=== PATIENT | male | born 1995 | race Caucasian/White ===

== ENCOUNTER 2022-06-06 16:00 | Emergency (ER) | payer OTHER, SELFPAY ==
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
[2022-06-06 16:24] VITALS: BP 152/82; PULSE 84; O2SAT 100
[2022-06-06 16:25] VITALS: BP 166/75; PULSE 90; RESP 18; TEMP 37.7; O2SAT 100; BMI 29.3
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
[2022-06-06] MEDS: Cyclobenzaprine HCl 10 MG TABLET PO (16:49)
[2022-06-06 17:49] LABS: COVID-19 Test Negative (Negative)
[2022-06-06 17:53] VITALS: BP 150/86; PULSE 92; RESP 18; TEMP 36.8; O2SAT 100
[2022-06-06 18:00] VITALS: BP 150/86; PULSE 92; RESP 18; TEMP 36.8; O2SAT 100
== END 2022-06-06 18:08 | disposition short-term general hospital (02) ==
PROVIDERS: Nurse Practitioner Family; Emergency Provider Internal Medicine
DX: S32.049A Unspecified fracture of fourth lumbar vertebra, initial encounter for closed fracture (principal); M54.50 Low back pain, unspecified; V29.40XA Motorcycle driver injured in collision with unspecified motor vehicles in traffic accident, initial encounter; Y93.9 Activity, unspecified; Y92.410 Unspecified street and highway as the place of occurrence of the external cause; Y99.9 Unspecified external cause status; F17.200 Nicotine dependence, unspecified, uncomplicated; Z20.822 Contact with and (suspected) exposure to COVID-19; Z71.6 Tobacco abuse counseling
CPT/HCPCS: 72100; 87635; 99285

== ENCOUNTER 2023-02-09 11:30 | Outpatient (RCR) | payer OTHER, SELFPAY ==
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
[2023-01-21 11:51] VITALS: BMI 27.4
[2023-01-21 12:11] VITALS: BP 110/70; PULSE 68; TEMP 37.1
[2023-01-21 12:46] LABS: Amphetamine Screen Urine Not Detected (Not Detect); Barbiturates, Urine Not Detected (Not Detect); Benzodiazepines Screen Urine Not Detected (Not Detect); Cannabinoid Screen Urine Not Detected (Not Detect); Cocaine Screen Urine Not Detected (Not Detect); Fentanyl, urine POSITIVE (Not Detect); Opiate Screen Urine Not Detected (Not Detect); Phencyclidine Screen Urine Not Detected (Not Detect)
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
--- NOTE | 2023-01-24 13:23 | PC.NURSE ---
Patient's toxicology screen positive for Fentanyl. I asked Erik about this and he stated he does not use Fentanyl and is not on any pain medications/opiates or heroin. Patient wants another DILL. Yaquelin JUAREZ is aware.
--- NOTE | 2023-01-27 15:56 | HO.PHP ---
Clients case was reviewed and opened today in treatment team.
--- NOTE | 2023-01-28 12:19 | P.PNPSP_ITS ---
Subjective Subjective Date of Service: 01/28/23 Reason For Visit: anxiety,depression Medical Problems Affecting Mental Status: No Interim History: Describes mood as ?good?. Less depressed. Continues to abstain from alcohol, 2 weeks in 2 days sober. Active in alcoholics anonymous, going to meetings daily, has a sponsor. Stopped taking nicotine patches, using Nicorette gum, continues to smoke 1-2 cigarettes daily. Reports good sleep. Finding program helpful. No hallucinations, no paranoia reported. No SI, no safety concerns. Medication Compliance: Yes Side effects from medications: No Attending Groups: Yes Review of Systems Acute medical concerns: No Medical Review of Systems: unchanged Review of Systems Review of Systems Yes all other systems are reviewed and are negative Constitutional: Reports no additional constitutional complaints Mental Status Exam Mental Status Exam Narrative: NAD Patient Appearance: Well Grooomed Patient Orientation: Person, Place, Time and Situation Level of Consciousness: Appropriate Patient Behavior: Appropriate, Cooperative and Good Eye Contact Mood Description: Appropriate Affect Description: Depressed (improving) and Anxious (improving) Patient Cognition Impaired: No Ability to Follow Directions: Excellent Speech Pattern: Clear Memory Description: Intact Hallucinations: None Delusions: Not Present Thought Process: Intact Thought Content: positive for Intact Depressive Symptoms: Increased Anxiety, Loss of Int. in Activity and Increased Fatigue Judgement: Fair Diagnostics Vital Signs (24Hr): BMI result Body Mass Index 27.4 Assessment & Plan Assessment & Plan (1) Major depressive disorder, recurrent, severe with psychotic features: Status: Acute Code(s): F33.3 - Major depressive disorder, recurrent, severe with psychotic symptoms Assessment and Plan: Improved mood, less depressed, less anxious. Satisfied with current medications, says they are working to help manage sx. No SI, no safety concerns. Just received refills of meds from [place] earlier this week. Finding PHP groups helpful. (2) Alcohol use disorder, moderate, dependence: Status: Acute Code(s): F10.20 - Alcohol dependence, uncomplicated Assessment and Plan: Continues to remain abstinent from alcohol use, currently sober for 2 weeks and 2 days today. Attending AA daily, has a sponsor, beginning to work the steps. Getting more active, making sober friends. No cravings currently. Finding Substance use groups here helpful. (3) Cannabis use disorder, moderate, dependence: Status: Acute Code(s): F12.20 - Cannabis dependence, uncomplicated Assessment and Plan: Continues to abstain, no concerns. (4) PTSD (post-traumatic stress disorder): Status: Acute Code(s): F43.10 - Post-traumatic stress disorder, unspecified Assessment and Plan: Improved sleep, able to sleep through the night with no nightmares, restlessness / disrupted sleep. Plan 1. Continue with current [facility] plan of care. 2. Continue with medications as currently prescribed through [facility]. 3. Risk reduction discussion, recovery support. 4. Follow-up as per protocol. Patient educated on: diagnosis, medication risk/benefits, substance abuse and therapeutic strategies Informed Consent: understands Reason for contiued partial hosp. stay Substantial Risk for: harm to self, inability to function and rapid decompensation Certification I certify that partial hospital treatment is medically necessary due to the symptoms and problems resulting from the patient's mental illness and the fail ure to treat the patient at the partial hospital level of care would likely result in the patient requiring inpatient psychiatric care which could not be prevented at a less intensive level of care. Total time managing care of this patient today __20__ minutes. Discharge Plan Discharge Attending provider: Shayne Liao Medications: No Action risperidone [Risperdal] 4 mg Tablet 2 mg PO BEDTIME Rx Instructions: Take 1/2 tab at bedtime nicotine (polacrilex) 2 mg Gum 2 mg BUCCAL Q2H PRN (Reason: Nicotine Cravings) clonazepam 0.5 mg Tablet 0.25 mg PO BID PRN (Reason: Anxiety) Rx Instructions: Take 1/2 tab BID PRN trazodone 100 mg Tablet 100 mg PO BEDTIME melatonin 5 mg Tablet 5 mg PO BEDTIME PRN (Reason: Insomnia) nicotine 21 mg/24 hr Patch 24 Hour 1 patch TRANSDERMAL DAILY escitalopram oxalate 20 mg Tablet 10 mg PO DAILY Patient Comments: Patient took a picture of Escitalopram bottle to confirm dose. Rx Instructions: Take 1/2 tab daily.
--- NOTE | 2023-02-03 15:36 | HO.PHP ---
PHP staff contacted Erik's OP provider to inform her of how Erik has been doing in the program and to provide her with his discharge information. PHP staff left a message.
--- NOTE | 2023-02-04 12:57 | HO.PHPPROGNO ---
Subjective Subjective Date of Service: 02/04/23 Reason For Visit: anxiety,depression Medical Problems Affecting Mental Status: No Interim History: My anxiety is bad, especially at night. I can't sit still . Post acute cannabis withdrawals, cravings. Remains abstinent from alcohol and cannabis. Continues with AA meetings Some nightmares, drunk dreams , restless legs. No SI, feels safe Medication Compliance: Yes Side effects from medications: No Attending Groups: Yes Review of Systems Acute medical concerns: No Medical Review of Systems: unchanged Review of Systems Review of Systems Yes all other systems are reviewed and are negative Constitutional: Reports no additional constitutional complaints Mental Status Exam Mental Status Exam Narrative: Restless, increased anxiety Patient Appearance: Well Grooomed Patient Orientation: Person, Place, Time and Situation Level of Consciousness: Appropriate Patient Behavior: Appropriate, Cooperative and Good Eye Contact Mood Description: Anxious Affect Description: Depressed (improving) and Anxious Patient Cognition Impaired: No Ability to Follow Directions: Excellent Speech Pattern: Clear Memory Description: Intact Hallucinations: None Delusions: Not Present Thought Process: Intact Thought Content: positive for Intact Depressive Symptoms: Increased Anxiety, Loss of Int. in Activity and Increased Fatigue Abnormal Motor Activity Signs and Symptoms: Restlessness Judgement: Fair Diagnostics Vital Signs (24Hr): BMI result Body Mass Index 27.4 Assessment & Plan Assessment & Plan (1) Major depressive disorder, recurrent, severe with psychotic features: Status: Acute Code(s): F33.3 - Major depressive disorder, recurrent, severe with psychotic symptoms Assessment and Plan: My anxiety is bad, especially at night. I can't sit still . Reviewed symptoms of akathisia with patient, as he is currently taking risperidone. Patient states he feels is more related to his not using cannabis, and his level of anxiety, rather than an internal restlessness. States overall currently does not feel depressed, but is more focused on anxiety. States, it is worse when I am home alone . Describes symptoms of Post acute cannabis syndrome, cravings. Remains abstinent from alcohol and cannabis. States that he does not want to use cannabis, but he is currently struggling. Continues with AA meetings. Has been working to develop a sober network of people, states that people from meetings are now calling him, which he finds comforting and reassuring. States that he has been trying to cultivate a group of sober friends. Some nightmares, drunk dreams , restless legs. States that he does continue with some hyper arousal, hyper alertness related to PTSD symptoms. No SI, feels safe We discussed various medication options. Discussed trialing propanolol, as it can help with anxiety. Also discussed as another option trialing low-dose gabapentin, as it has been used to help with his cannabis withdrawal syndrome symptoms, as well as with anxiety and restless legs. He was in agreement with a trial of low dose gabapentin at this time. (2) Alcohol use disorder, moderate, dependence: Status: Acute Code(s): F10.20 - Alcohol dependence, uncomplicated (3) Cannabis use disorder, moderate, dependence: Status: Acute Code(s): F12.20 - Cannabis dependence, uncomplicated (4) PTSD (post-traumatic stress disorder): Status: Acute Code(s): F43.10 - Post-traumatic stress disorder, unspecified Plan 1. Continue with current [facility] plan of care. 2. Start gabapentin 100 mg b.i.d. p.r.n. for anxiety. 3. Continue with other medications as currently prescribed. 4. Follow-up as per protocol. Patient educated on: diagnosis, medication risk/benefits, substance abuse and therapeutic strategies Informed Consent: understands Reason for contiued partial hosp. stay Substantial Risk for: harm to self, inability to function, rapid decompensation and med/psych decompensation Certification I certify that partial hospital treatment is medically necessary due to the symptoms and problems resulting from the patient's mental illness and the failure to treat the patient at the partial hospital level of care would likely result in the patient requiring inpatient psychiatric care which could not be prevented at a less intensive level of care. Total time managing care of this patient today _20___ minutes. Discharge Plan Discharge Attending provider: Shayne Liao Medications: New gabapentin 100 mg capsule 100 mg PO BID PRN (Reason: anxiety) Qty: 14 0RF No Action risperidone [Risperdal] 4 mg Tablet 2 mg PO BEDTIME Rx Instructions: Take 1/2 tab at bedtime nicotine (polacrilex) 2 mg Gum 2 mg BUCCAL Q2H PRN (Reason: Nicotine Cravings) clonazepam 0.5 mg Tablet 0.25 mg PO BID PRN (Reason: Anxiety) Rx Instructions: Take 1/2 tab BID PRN trazodone 100 mg Tablet 100 mg PO BEDTIME melatonin 5 mg Tablet 5 mg PO BEDTIME PRN (Reason: Insomnia) nicotine 21 mg/24 hr Patch 24 Hour 1 patch TRANSDERMAL DAILY escitalopram oxalate 20 mg Tablet 10 mg PO DAILY Patient Comments: Patient took a picture of Escitalopram bottle to confirm dose. Rx Instructions: Take 1/2 tab daily.
[2023-02-04 14:28] LABS: Amphetamine Screen Urine Not Detected (Not Detect); Barbiturates, Urine Not Detected (Not Detect); Benzodiazepines Screen Urine Not Detected (Not Detect); Cannabinoid Screen Urine Not Detected (Not Detect); Cocaine Screen Urine Not Detected (Not Detect); Fentanyl, urine POSITIVE (Not Detect); Opiate Screen Urine Not Detected (Not Detect); Phencyclidine Screen Urine Not Detected (Not Detect)
--- NOTE | 2023-02-09 12:49 | HO.PHPPROGNO ---
Subjective Subjective Date of Service: 02/09/23 Reason For Visit: anxiety,depression Medical Problems Affecting Mental Status: No Interim History: Describes mood is good Finds the gabapentin helpful, has been taking once daily p.r.n. No paranoia, no SI. Relapsed 1 day with cannabis, remains abstinent from alcohol. Continues to work with sponsor, attending regular AA meetings. Returns to work Tuesday. Last day today, feels stable for discharge at this time. Medication Compliance: Yes Side effects from medications: No Attending Groups: Yes Review of Systems Acute medical concerns: No Medical Review of Systems: unchanged Review of Systems Review of Systems Yes all other systems are reviewed and are negative Constitutional: Reports no additional constitutional complaints Mental Status Exam Mental Status Exam Narrative: NAD Patient Appearance: Well Grooomed Patient Orientation: Person, Place, Time and Situation Level of Consciousness: Appropriate Patient Behavior: Appropriate, Cooperative and Good Eye Contact Mood Description: Calm and Appropriate Affect Description: Calm and Appropriate Patient Cognition Impaired: No Ability to Follow Directions: Excellent Speech Pattern: Clear Memory Description: Intact Hallucinations: None Delusions: Not Present Thought Process: Intact Thought Content: positive for Intact Judgement: Good Diagnostics Vital Signs (24Hr): BMI result Body Mass Index 27.4 Assessment & Plan Assessment & Plan (1) Major depressive disorder, recurrent, severe with psychotic features: Status: Acute Code(s): F33.3 - Major depressive disorder, recurrent, severe with psychotic symptoms Assessment and Plan: Reports much less depressed, much less anxious. Feels that the program has been helpful as well as medications, describes mood as good Finds the gabapentin helpful, has been taking once daily p.r.n. states that he did not needed twice daily, in uses it in the evenings with good effect. No paranoia, no SI. Has been taking risperidone as prescribed, reports that is working well. Relapsed 1 day with cannabis, remains abstinent from alcohol. States that he had friends over that were smoking marijuana, and he used it once on Tuesday. It expressed that he felt guilty afterwards, and did not like the affect. Would like to remain abstinent from marijuana as well as alcohol. Discussed creating a relapse prevention plan. Handout provided, discussed carrying it with him as a hard copy or putting into his phone. Continues to work with sponsor, attending regular AA meetings. Returns to work Tuesday. Discussed what he will do over next several days prior to returning to work. He plans to keep busy with AA meetings, physical exercise, hanging out with sober friends. Last day today, feels stable for discharge at this time. (2) Alcohol use disorder, moderate, dependence: Status: Acute Code(s): F10.20 - Alcohol dependence, uncomplicated (3) Cannabis use disorder, moderate, dependence: Status: Acute Code(s): F12.20 - Cannabis dependence, uncomplicated (4) PTSD (post-traumatic stress disorder): Status: Acute Code(s): F43.10 - Post-traumatic stress disorder, unspecified Plan 1. Patient appears stable for discharge from [facility] at this time. 2. Gabapentin reduced to once daily prn, refill sent. 3. Patient to follow-up with outpatient providers going forward. Patient educated on: diagnosis, medication risk/benefits, substance abuse and therapeutic strategies Informed Consent: understands Reason for contiued partial hosp. stay Substantial Risk for: stable for discharge Certification I certify that partial hospital treatment is medically necessary due to the symptoms and problems resulting from the patient's mental illness and the failure to treat the patient at the partial hospital level of care would likely result in the patient requiring inpatient psychiatric care which could not be prevented at a less intensive level of care. Total time managing care of this patient today __20__ minutes. Discharge Plan Discharge Attending provider: Shayne Liao Medications: New gabapentin 100 mg capsule 100 mg PO DAILY PRN (Reason: anxiety) Qty: 30 0RF No Action risperidone [Risperdal] 4 mg Tablet 2 mg PO BEDTIME Rx Instructions: Take 1/2 tab at bedtime nicotine (polacrilex) 2 mg Gum 2 mg BUCCAL Q2H PRN (Reason: Nicotine Cravings) clonazepam 0.5 mg Tablet 0.25 mg PO BID PRN (Reason: Anxiety) Rx Instructions: Take 1/2 tab BID PRN trazodone 100 mg Tablet 100 mg PO BEDTIME melatonin 5 mg Tablet 5 mg PO BEDTIME PRN (Reason: Insomnia) nicotine 21 mg/24 hr Patch 24 Hour 1 patch TRANSDERMAL DAILY escitalopram oxalate 20 mg Tablet 10 mg PO DAILY Patient Comments: Patient took a picture of Escitalopram bottle to confirm dose. Rx Instructions: Take 1/2 tab daily. Stand Alone Forms: Patient Portal Discharge page Patient Education: Depression (DC), Alcohol Use Disorder (ED)
== END 2023-02-09 23:59 | disposition home or self-care (01) ==
LOC: HO.PHPA 11:30
PROVIDERS: Nurse Practitioner Psychiatric/Mental Health; Visit Provider Psychiatry & Neurology Psychiatry
DX: F33.3 Major depressive disorder, recurrent, severe with psychotic symptoms (principal); F43.10 Post-traumatic stress disorder, unspecified; F12.20 Cannabis dependence, uncomplicated; F10.20 Alcohol dependence, uncomplicated
CPT/HCPCS: 80307; 90791; 90853